=== PATIENT | female | born 1935 | race Caucasian/White ===

== ENCOUNTER → 2017-08-31 | Outpatient (CLI) | payer MEDICARE ==
[~2017-08-31] MED LIST: ACCOLATE20 MG PO; ADVAIR 250/501 EA INH; ADVAIR 500/501 E1 INH; ADVAIR DISKUS 51 DSK INH; CIPRO500 MG PO; CLARITIN-D 10 M1 T24 PO; CLARITIN-D 24 H1 T24 PO; CLARITIN10 MG PO; DELTASONE10 MG PO; FERROUS SULFAT325 MG PO; GLIPIZIDE XL5 MG PO; GLIPIZIDE5 MG PO; GLUCOTROL5 M1 PO; GLUCOTROL5 MG PO; HYDROCODONE BIT1 T11 PO; IRON65 MG PO; LOMOTIL 0.025 M1 TA1 PO; MECLIZINE12.5 MG PO; METFORMIN500 MG PO; PHENOBARBITAL PO; PHENOBARBITAL30 MG PO; PHENOBARBITAL32.4 M1 PO; PREDNISONE10 MG PO; PROTONIX20 MG PO; TYLENOL325 M1 PO; TYLENOL325 M2 PO; ZOFRAN ODT4 MG SL
== END | disposition home or self-care (01) ==
LOC: LAB 16:13
DX: R05 Cough (principal)

== ENCOUNTER 2018-05-07 12:51 | Emergency (ER) | payer MEDICARE ==
[~2018-05-07] VITALS: Wt 72.6 kg
[~2018-05-07 12:51] MED LIST changes: -PREDNISONE10 MG PO
[2018-05-07] MEDS ORDERED: PRILOSEC10 M2 PO (13:00)
[2018-05-07] MEDS ORDERED: PREDNISONE10 MG PO (13:00)
[2018-05-07 13:13] LABS: BILIRUBIN NEGATIVE (NEGATIVE); BLOOD NEGATIVE (NEGATIVE); CLARITY SL CLOUDY (CLEAR); COLOR YELLOW (YELLOW); GLUCOSE NEGATIVE (NEGATIVE); KETONE NEGATIVE (NEGATIVE); LEUKO ESTERASE 2+ (NEGATIVE); NITRITE NEGATIVE (NEGATIVE); UROBILINOGEN 0.2 E.U./dl (0.2-1.0)
[2018-05-07 13:25] LABS: BACTERIA 1+
[2018-05-07] MEDS ORDERED: NOVOLOG FL100 UNIT/1 SQ (13:28)
[2018-05-07] MEDS ORDERED: LANTUS SOL100 UNIT/1 SC (13:28)
[2018-05-07 13:35] LABS: BASO % 0.3 % (0.0-1.0); EOS % 0.3 % (1.0-4.0); HEMOGLOBIN 14.1 g/dl (12.0-16.0); LYMPH # 0.8 10*3/uL (1.3-4.4); LYMPH % 8.7 % (27.0-41.0); MEAN CELL VOLUME 86.8 fl (81.0-99.0); MEAN CORPUSCULAR HGB 27.8 pg (27.0-31.0); MEAN PLATELET VOLUME 9.8 fl (9.6-12.3); MONO # 0.2 10*3/uL (0.1-1.0); MONO % 1.6 % (3.0-9.0); NEUT # 8.3 10*3/uL (2.3-7.9); NEUT % 88.8 % (47.0-73.0); PLATELET COUNT AUTOMATED 206 10*3/uL (130-400); RED BLOOD COUNT 5.07 10*6/uL (4.10-5.10); RED CELL DISTRI WIDTH 12.8 % (0-14.5); WHITE BLOOD COUNT 9.3 10*3/uL (4.8-10.8)
[2018-05-07 13:42] LABS: INTERNATIONAL NORM RATIO 0.9 (2.0-3.5)
[2018-05-07 13:53] LABS: ALBUMIN 3.5 gm/dl (3.1-4.5); ALKALINE PHOSPHATASE 73 U/L (45-117); BUN 18 mg/dl (7-24); CHLORIDE 103 mmol/L (98-107); CREATININE 0.81 mg/dL (0.55-1.02); POTASSIUM 4.2 mmol/L (3.5-5.1); SGOT/AST 9 IU/L (3-35); SGPT/ALT 9 U/L (12-78); SODIUM 139 mmol/L (136-145); TOTAL PROTEIN 7.2 gm/dL (6.4-8.2)
[2018-05-07 13:54] LABS: TROPONIN I < 0.015 ng/ml (<0.045)
[2018-05-07] MEDS ORDERED: SEPTDS PO (14:50)
[2018-05-07 15:14] VITALS: BP 132/84
== END 2018-05-07 15:08 | disposition home or self-care (01) ==
LOC: ED 12:51
PROVIDERS: Nurse Practitioner Family
DX: J45.901 Unspecified asthma with (acute) exacerbation (principal); N39.0 Urinary tract infection, site not specified; Z79.4 Long term (current) use of insulin; Z88.6 Allergy status to analgesic agent; Z88.5 Allergy status to narcotic agent; Z88.8 Allergy status to other drugs, medicaments and biological substances

== ENCOUNTER 2019-08-21 00:16 | Inpatient (IN) | payer MEDICARE ==
[~2019-08-21] VITALS: Wt 77.6 kg
[~2019-08-21 00:16] MED LIST changes: +ADV 500/50 INH; +LANTUS SOL100 UNIT/1 SC; +NOVOLOG FL100 UNIT/2 SQ; +PANTOPRAZOLE SO40 MG PO; +PREDNISONE10 MG PO; +PRILOSEC10 M2 PO; +SEPTDS PO; +VENTOLIN 02.5 MG/3 M INH
[2019-08-21] MEDS ORDERED: KEFLEX500 M1 PO (00:45)
--- NOTE | 2019-08-21 01:05 | NUR ---
MCKENNA WATSON a 84 year old F admitted via stretcher from the EMERGENCY ROOM as a emergency 72 hr. hold admission. Arrived on unit at 0100. ALLERGIES: ASA,CODEINE,IODINE,DEMEROL,MORPHINE,PANTOPRAZOLE FROM PROTONIX,PROCAINE, PHENERGAN. Vital signs are: 97.2-85-17 151/69. NO ADMISSION FORMS SIGNED. PT WAS BROUGHT TO THE ER BY PRIVATE CAR BY HER SON AFTER HE RECEIVED A CALL FROM HIS AUNT SAYING THAT "SHE DIDNT SOUND RIGHT" PT LIVES WITH HER DAUGHTER. SHE HAS BEEN OUT OF CONTROL, SCREAMING, HOLLERING, SHOUTING , FLAILING HER ARMS & URINATED ON THE FLOOR PER ER REPORT. PT RECEIVED TOTAL MEDICATIONS OF ATIVAN 2MG IV, GEODON 10 MG IM, BENADRYL 25 MG IM, & 2 SEPERATE SHOTS OF THORAZINE 50 MG IM. ALSO RECIEVED ROCEPHEN IV FOR A UTI. PT CAME ON THE UNIT VIA STRETCHER SEDATED. UNABLE TO ANSWER ANY ASSESSMENT QUESTIONS OR ADMISSION PAPERS. WAS PLACED ON 02 @ 3L/MIN SHE WAS ON IT IN THE ER. PER FAMILY SHE HAS SLEEP APNEA & HAS OXYGEN AT HOME AT NIGHT. Admitted under the services of Dr. DELANEY GAONA,[facility]. A search was conducted and hazardous articles were removed. PER ER, DAUGHTER TOOK HOME PATIENTS PERSONAL BELONGINGS. NO WOUNDS FOUND ON ADMISSION. FELECIA TREVINO
[2019-08-21 01:14] VITALS: BP 151/69
--- NOTE | 2019-08-21 01:18 | NUR ---
NOTIFIED DR PIERSON OF MEDICAL CONSULT.
--- NOTE | 2019-08-21 02:00 | NUR ---
DR PIERSON ON UNIT TO SEE PT FOR MEDICAL CONSULT.
[2019-08-21 02:02] VITALS: BP 151/69
[2019-08-21 08:38] VITALS: BP 142/72
--- NOTE | 2019-08-21 18:07 | NUR ---
PATIENT ALERT TO PERSON WITH CONFUSION. MEMORY GAPS NOTED. MOOD IS HOPELESS/HELPLESS. CURRENTLY BEING TREATED FOR UTI. PATIENT SLEPT MOST OF THE DAY. MEDICATIONS HELD DUE TO BEING DROWSY. Q 15 MINUTE SAFETY CHECKS MAINTAINED. 2 PERSON ASSIST WITH ACTIVITIES OF DAILY LIVING, INCONTINENT OF BLADDER. SET UP FOR MEALS, POOR PO INTAKE NOTED. PATIENT MORE ALERT DURING DINNER. 1 CUP OF PUDDING AND 120CC OF DRINK CONSUMED. 1 PERSON ASSIST WITH MEALS. NO RESPONSE TO INTERNAL STIMULI OBSERVED. NO ATTEMPTS TO STAND OR WALK TO EXIT SEEK. CONTINUE TO MONITOR FOR INCREASED ANXIETY, YELLING/SCREAMING. PROVIDE ONE ON ONE AND REDIRECTION NEEDED.
[2019-08-21 20:00] VITALS: BP 129/89
--- NOTE | 2019-08-21 22:01 | NUR ---
24 HR chart check completed.
--- NOTE | 2019-08-22 00:26 | NUR ---
PT HAS REMAINED IN BED SLEEPING. AWAKENS WITH VERBAL PROMPTING. ALERT TO NAME & DATE OF . SPEECH IS CLEAR & COHERENT. PT CONFUSED & ASKED "WHAT HAPPENED". PT RECEPTIVE TO EXPLANATION BUT COMPREHENSION IS POOR. PT ASKED SAME QUESTION A FEW TIMES. CO-OPERATIVE DRINKING 240 CC OF DIET BRENDON ILIANA & EATING SNACK & TAKING HS MEDS CRUSHED WITH STAFF ASSISTANCE. PT STATED "IM JUST TIRED. I WANT TO SLEEP".
--- NOTE | 2019-08-22 05:43 | NUR ---
PT HAS SLEPT QUIETLY THROUGHOUT THE SHIFT PAST 2014. UTILIZED O2 VIA NC @ 3L
--- NOTE | 2019-08-22 06:29 | NUR ---
AM BEDSIDE GLUCOSE 118
[2019-08-22 07:47] VITALS: BP 128/67
--- NOTE | 2019-08-22 08:30 | NUR ---
Treatment Plan meeting with Dr. Howard, RN, AT, SW and Hardboard Coating Machine Operator. Plan for discharge next week. Pt. is from Home. Will reach out to family today to discuss discharge Plans.
--- NOTE | 2019-08-22 09:34 | NUR ---
PHYSICAL THERAPY Nursing screen received and chart reviewed. Physical therapy referral received. Thank you. Shasha Recinos,PT,DPT
--- NOTE | 2019-08-22 11:10 | NUR ---
PHYSICAL THERAPY Physical therapy evaluation completed. Full details and evaluation to follow. Moderate complexity skilled PT evaluation performed (80431). PT will work on strength, balance, transfers, and gait per POC. Recommend SNF upon discharge. Thank you, Rima Pritchett, SPT Shasha Recinos,PT,DPT
--- NOTE | 2019-08-22 11:58 | NUR ---
AM GROUP PT WAS BROUGHT INTO GROUP LATE BY MILIEU AND IMMEDIATELY ASKED TO GO BACK TO BED. PT WAS TOLD BY NURSING TO TRY TO STAY UP. PT SAT AT THE TABLE WITH PEERS BUT CHOSE NOT TO PARTICIPATE AND SOON FELL ASLEEP SITTING UPRIGHT IN THE WHEELCHAIR.
[2019-08-22 12:41] LABS: VITAMIN D, 25-HYDROXY 28.5 ng/mL (30-100)
--- NOTE | 2019-08-22 15:51 | NUR ---
PM GROUP PT DID NOT ATTEND AFTERNOON GROUP THERAPY. PT WAS IN BED RESTING.
[2019-08-22 19:36] VITALS: BP 118/64
--- NOTE | 2019-08-22 21:41 | NUR ---
NO ADVERSE BEHAVIORS NOTED. PT CALM, ALERT AND ORIENTED TO PERSON WITH CONFUSION. PT INTERACTIVE WITH STAFF AND PEERS, SAT IN DINING ROOM FOR HS SNACK. MEDICATION COMPLIANT WITHOUT DIFFICULTY, UNABLE TO EDUCATE DUE TO COGNITION. PT DENIES SI/HI AND HALLUCINATIONS, NO NOTED RESPONDING TO INTERNAL STIMULI. NO PARANOIA/DELUSIONS NOTED. NO PHYSICAL COMPLAINTS VOICED. PATIENT CURRENTLY LAYING DOWN WITH EYES CLOSED, RESPIRATIONS EASY AND REGULAR, NO SIGNS OR SYMPTOMS OF DISTRESS NOTED. PLAN IS TO CONTINUE TO MONITOR MOOD AND BEHAVIORS. PROVIDE REORIENTATION AND REDIRECTION NEEDED. PROVIDE 1:1 FOR VENTILATION OF FEELINGS. ENCOURAGE MEDICATION COMPLIANCE. MAINTAIN Q 15 MIN CHECKS.
--- NOTE | 2019-08-23 04:19 | NUR ---
24 HOUR CHART CHECK COMPLETED.
--- NOTE | 2019-08-23 06:48 | NUR ---
PATIENT REFUSED AM INSULIN COVERAGE OF 3 UNITS, PT STATED "I DONT NEED THAT, MY SUGAR COMES DOWN ON ITS OWN, I DONT TAKE INSULIN". PT UNABLE TO BE REDIRECTED AND UNRECEPTIVE TO EDUCATION AT THIS TIME.
--- NOTE | 2019-08-23 06:54 | NUR ---
PATIENT OBSERVED ON Q 15 MIN CHECKS TO HAVE SLEPT APPROX 8 HOURS WITH NO AWAKENINGS OR SIGNS AND SYMPTOMS OF DISTRESS NOTED.
--- NOTE | 2019-08-23 07:20 | NUR ---
OT NOTE Pt was seen this A.M. 1:1 for 24 minute OT session with MEDICAL DETAILIST and nursing staff present for observation only. Upon arrival pt was supine in bed. Pt identified by name and and had no complaints at this time. Pt presented to therapy on room air. Pt transferred supine to sit EOB with modA X 2. Once sitting EOB pt was able to maintain P-/P+ sitting balance requiring mod-maxA to correct retrograde posture and L lateral lean. While sitting EOB pt doffed gown with Lo and donned new shirt with Lo. Pants and underpants donned with modA. Sit to stand completed from bed level with maxA SENIOR SHIPPING CLERK for inital stand and then completed stand pivot from EOB to the w/c with Lo. Extra time given throughout due to pt's slow rate of performance and verbal prompts for encouragement and participation. Pt was left sitting upright in the dining room in her w/c under U staff supervision. Continue with rec D/C plan to SNF. HARDY Severino/Lukasz
[2019-08-23 07:44] VITALS: BP 98/48
--- NOTE | 2019-08-23 08:14 | NUR ---
PHYSICAL THERAPY PT SUPINE IN BED UPON ARRIVAL THIS A.M. PT IDENTIFIED BY NAME AND . PT AGREED TO ALL PHYSICAL THERAPY TREATMENT THIS VISIT. PT REPORTED THAT PT HAD NAME IN RIGHT SHOULD. PT PERFORMED BED MOBILITY SUPINE IT SITTING EOB WITH MODa X2 WITH VC'S TO HELP WITH PUSHING ON BED. PT THEN REQUIRED MOD-MAXa X1 FOR SEATED BALANCE PT WAS PUTTING ALL WEIGHT TO L SIDE AND UNABLE TO HOLD PT SELF UPRIGHT. PT PERFORMED STS FROM EOB WITH MAXa X1 WITH VC'S TO PUT WEIGHT THROUGH FEET AND TO STAND UP STRAIGHT. PT THEN WANTED TO LAY BACK DOWN AND WAS UNSAFE WITH A PLOP DOWN INTO BED TO SIDE LYING. PT THEN REQUIRED MAXa X1 TO GO FROM SUPINE TO SIT EOB. PT SAT EOB WITH Carol X1 FOR SEATED BALANCE AND WAS ABLE TO HOLD SELF BETTER THAN FIRST ATTEMP. PT PERFORMED STS FROM EOB WITH Carol X1 AND PIVOT TRANSFER TO WITH Carol X1 WITH VX'S FOR SAFETY. PT THEM WHEELED TO ACTIVITY ROOM. PT IN ACTIVITY ROOM WITH AIDE PRESENT AWAITING BREAFAST AT END OF SESSION. PT SEEN 1:1 FOR 16MINS THIS A.M. KASSANDRA KANG PTA
--- NOTE | 2019-08-23 08:49 | NUR ---
FIONA CHEEK DAIRY EQUIPMENT INSTALLER NOTIFIED OF MANUAL BP 98/48. NO COMPLAINTS OF BEING DIZZY. ENCOURAGED FLUIDS.
--- NOTE | 2019-08-23 11:57 | NUR ---
AM GROUP PT CHOSE NOT TO ATTEND MORNING GROUP THERAPY. PT STAYED IN BED.
--- NOTE | 2019-08-23 12:30 | NUR ---
Spoke with Pt. Granddaughter Sara Bautista during visiting Hours. Sara Feels that patient is at baseline and Patient is requesting discharge tommorow. Pt. states she will not voluntarily Sign in. Granddaughter and Patient live together in the same home and Granddaughter is the caregiver. Declined need for Homehealth and Granddaughter states that she will make patient appointments and patient is refusing Mental Health Follow up at discharge. Advised Nursing Staff that patient will discharge tommorow and hotel or motel room service supervisor time is 12:30. p.m.
--- NOTE | 2019-08-23 18:55 | NUR ---
PATIENT IS ALERT TO PEROSN, PLACE AND SITUATION; ABLE TO VOICE NEEDS. MOOD IS STABLE. DENIES ANY HALLUCINATIONS, DELUSIONS, HI/SI OR PAIN. NO RESPONSE TO INTERNAL STIMULI. REFUSED EVENING MEDICATION WITH EDUCATION PROVIDED REGARDING ANTIBOTICS FOR UTI. PATIENT STILL CONTINUES TO REFUSE. Q 15 MINUTE SAFETY CHECKS MAINTAINED. 1 PERSON ASSIST WITH ACTIVITIES OF DAILY LIVING, CONTINENT OF BOWEL AND BLADDER. SET UP FOR MEALS, INTAKES ARE IMPROVING. MONITOR FOR INCREASED CONFUSION, YELLING OUTBURST, CRYING EPISODES. PROVIDE ONE ON ONE AND REDIRECTION NEEDED.
[2019-08-23 20:00] VITALS: BP 141/71
--- NOTE | 2019-08-23 20:46 | NUR ---
EVENING/DISCUSSION/RELAXTION PT CHOSE NOT TO ATTEND BUT TO SLEEP AT THIS TIME. PT WILL CONTINUE TO BE ENCOURAGED TO ATTEND AND PARTICIPATE IN FUTURE GROUP SESSIONS.
--- NOTE | 2019-08-23 23:30 | NUR ---
24 HR chart check completed.
--- NOTE | 2019-08-24 00:02 | NUR ---
PT REQUESTED & MEDICATED WITH TYLENOL 2 TABS @ 2130 FOR C/O H/A. RATED PAIN 9/10. EFFECTIVE. PT SLEEPING QUIETLY AT THIS TIME.
--- NOTE | 2019-08-24 05:14 | NUR ---
PT HAS SLEPT QUIETLY PAST 2114 WITH A FEW BRIEF AWAKENINGS BUT REMAINED IN BED.
--- NOTE | 2019-08-24 06:16 | NUR ---
AM BEDSIDE GLUCOSE 175
[2019-08-24 09:00] VITALS: BP 106/58
[2019-08-24] MEDS ORDERED: NAMENDA-5 PO (10:02)
[2019-08-24] MEDS ORDERED: RIVASTIGMINE TAR3 M1 PO (10:02)
--- NOTE | 2019-08-24 12:16 | NUR ---
Spoke with Patient and her Granddaughter Sara Bautista Yesterday at visiting. Both Declined for marine driller to set up follow up appointments. Pt. follows in [place] and Family as well as patient has requested no Psychiatric Follow Up.
--- NOTE | 2019-08-25 07:32 | NUR ---
PHYSICAL THERAPY CO-SIGN I approve of the Physical Therapy notes written above. GEMMA PRITCHARD PT,DPT
--- NOTE | 2019-08-26 07:37 | NUR ---
OT CO-SIGN I APPROVE OF THE NOTES WRITTEN ABOVE. THANK YOU. CRESCENCIO KAPADIA, OTR/L
== END 2019-08-24 12:41 | disposition home or self-care (01) | DRG 885 ==
LOC: 3N 00:16
PROVIDERS: ADMIT Psychiatry & Neurology Psychiatry
DX: F23 Brief psychotic disorder (principal); N39.0 Urinary tract infection, site not specified; E87.1 Hypo-osmolality and hyponatremia; D75.89 Other specified diseases of blood and blood-forming organs; M19.90 Unspecified osteoarthritis, unspecified site; K21.9 Gastro-esophageal reflux disease without esophagitis; G30.9 Alzheimer's disease, unspecified; E11.65 Type 2 diabetes mellitus with hyperglycemia; M81.0 Age-related osteoporosis without current pathological fracture; F02.80 Dementia in other diseases classified elsewhere, unspecified severity, without behavioral disturbance, psychotic disturbance, mood disturbance, and anxiety; J45.909 Unspecified asthma, uncomplicated; J44.9 Chronic obstructive pulmonary disease, unspecified; Z79.4 Long term (current) use of insulin; Z82.49 Family history of ischemic heart disease and other diseases of the circulatory system; Z83.3 Family history of diabetes mellitus; Z80.8 Family history of malignant neoplasm of other organs or systems; Z88.6 Allergy status to analgesic agent; Z88.5 Allergy status to narcotic agent; Z88.4 Allergy status to anesthetic agent; Z91.09 Other allergy status, other than to drugs and biological substances; Z79.899 Other long term (current) drug therapy; Z86.73 Personal history of transient ischemic attack (TIA), and cerebral infarction without residual deficits; Z87.440 Personal history of urinary (tract) infections; Z98.51 Tubal ligation status

== ENCOUNTER → 2019-12-19 | Outpatient (CLI) | payer MEDICARE ==
[~2019-12-19] MED LIST changes: +KEFLEX500 M1 PO; +NAMENDA-5 PO; +RIVASTIGMINE TAR3 M1 PO
[2019-12-19 09:03] LABS: BASO % 0.3 % (0.0-1.0); EOS # 0.1 10*3/uL (0.0-0.4); EOS % 0.7 % (1.0-4.0); HEMATOCRIT 36.8 % (37.0-47.0); HEMOGLOBIN 10.5 g/dl (12.0-16.0); LYMPH # 2.5 10*3/uL (1.3-4.4); LYMPH % 23.7 % (27.0-41.0); MEAN CELL VOLUME 78.6 fl (81.0-99.0); MEAN CORPUSCULAR HGB 22.4 pg (27.0-31.0); MEAN CORPUSCULAR HGB CONC 28.5 g/dl (33.0-37.0); MEAN PLATELET VOLUME 10.4 fl (9.6-12.3); MONO # 0.6 10*3/uL (0.1-1.0); MONO % 5.9 % (3.0-9.0); NEUT # 7.2 10*3/uL (2.3-7.9); PLATELET COUNT AUTOMATED 312 10*3/uL (130-400); RED BLOOD COUNT 4.68 10*6/uL (4.10-5.10); WHITE BLOOD COUNT 10.5 10*3/uL (4.8-10.8)
[2019-12-19 09:24] LABS: ALBUMIN 3.2 gm/dl (3.1-4.5); ALKALINE PHOSPHATASE 70 U/L (45-117); BUN 21 mg/dl (7-24); CHLORIDE 101 mmol/L (98-107); CREATININE 0.85 mg/dL (0.55-1.02); FREE T4 1.15 ng/dl (0.76-1.46); POTASSIUM 4.5 mmol/L (3.5-5.1); SGOT/AST 6 IU/L (3-35); SGPT/ALT 13 U/L (12-78); SODIUM 136 mmol/L (136-145); TOTAL PROTEIN 6.8 gm/dL (6.4-8.2)
[2019-12-20 09:03] LABS: LDL CHOLESTEROL (DIRECT) 142 mg/dL (0-99)
== END | disposition home or self-care (01) ==
LOC: LAB 08:03
DX: E11.65 Type 2 diabetes mellitus with hyperglycemia (principal); Z79.899 Other long term (current) drug therapy

== ENCOUNTER 2020-06-02 22:06 | Inpatient (IN) | payer OTHER ==
[~2020-06-02] VITALS: Ht 157.4 cm; Wt 75.8 kg
[2020-06-02 22:46] LABS: BASO % 0.3 % (0.0-1.0); EOS # 0.1 10*3/uL (0.0-0.4); EOS % 0.7 % (1.0-4.0); HEMATOCRIT 42.5 % (37.0-47.0); LYMPH # 2.6 10*3/uL (1.3-4.4); LYMPH % 29.6 % (27.0-41.0); MEAN CELL VOLUME 83.5 fl (81.0-99.0); MEAN CORPUSCULAR HGB 23.8 pg (27.0-31.0); MEAN CORPUSCULAR HGB CONC 28.5 g/dl (33.0-37.0); MEAN PLATELET VOLUME 9.4 fl (9.6-12.3); MONO # 0.8 10*3/uL (0.1-1.0); MONO % 9.2 % (3.0-9.0); NEUT # 5.3 10*3/uL (2.3-7.9); NEUT % 59.7 % (47.0-73.0); PLATELET COUNT AUTOMATED 225 10*3/uL (130-400); RED BLOOD COUNT 5.09 10*6/uL (4.10-5.10); RED CELL DISTRI WIDTH 16.1 % (0-14.5); WHITE BLOOD COUNT 8.8 10*3/uL (4.8-10.8)
[2020-06-02 22:47] VITALS: BP 104/39
[2020-06-02 22:58] LABS: ACT PARTIAL THROMBO TIME 22.7 SECONDS (20.0-32.1); INTERNATIONAL NORM RATIO 0.9 (2.0-3.5)
[2020-06-02 23:03] LABS: ALKALINE PHOSPHATASE 65 U/L (45-117); BUN 19 mg/dl (7-24); CHLORIDE 108 mmol/L (98-107); CREATININE 0.75 mg/dL (0.55-1.02); POTASSIUM 3.9 mmol/L (3.5-5.1); SGOT/AST 11 IU/L (3-35); SGPT/ALT 14 U/L (12-78); SODIUM 141 mmol/L (136-145); TOTAL PROTEIN 6.4 gm/dL (6.4-8.2)
[2020-06-02 23:06] LABS: TROPONIN I < 0.015 ng/ml (<0.045)
[2020-06-03 00:30] VITALS: BP 154/58
[2020-06-03] MEDS ORDERED: PAXIL10 MG PO (01:05)
[2020-06-03] MEDS ORDERED: CLARITIN-D 121 EACH PO (01:08)
[2020-06-03 04:25] LABS: BASO % 0.1 % (0.0-1.0); EOS # 0.1 10*3/uL (0.0-0.4); EOS % 0.6 % (1.0-4.0); HEMATOCRIT 40.5 % (37.0-47.0); LYMPH # 1.7 10*3/uL (1.3-4.4); LYMPH % 20.1 % (27.0-41.0); MEAN CELL VOLUME 83.3 fl (81.0-99.0); MEAN CORPUSCULAR HGB 23.7 pg (27.0-31.0); MEAN CORPUSCULAR HGB CONC 28.4 g/dl (33.0-37.0); MEAN PLATELET VOLUME 9.2 fl (9.6-12.3); MONO # 0.8 10*3/uL (0.1-1.0); NEUT # 5.7 10*3/uL (2.3-7.9); NEUT % 68.6 % (47.0-73.0); PLATELET COUNT AUTOMATED 175 10*3/uL (130-400); RED BLOOD COUNT 4.86 10*6/uL (4.10-5.10); RED CELL DISTRI WIDTH 16.4 % (0-14.5); WHITE BLOOD COUNT 8.2 10*3/uL (4.8-10.8)
[2020-06-03 04:41] LABS: ALBUMIN 2.7 gm/dl (3.1-4.5); ALKALINE PHOSPHATASE 59 U/L (45-117); BUN 16 mg/dl (7-24); CHLORIDE 107 mmol/L (98-107); CHOLESTEROL 223 mg/dL (<200); CREATININE 0.74 mg/dL (0.55-1.02); HDL CHOLESTEROL 75 mg/dl (40-60); LDL CHOLESTEROL 127 mg/dL (9-159); POTASSIUM 4.4 mmol/L (3.5-5.1); SGOT/AST 4 IU/L (3-35); SGPT/ALT 17 U/L (12-78); SODIUM 141 mmol/L (136-145); TOTAL PROTEIN 5.9 gm/dL (6.4-8.2); TRIGLYCERIDES 103 mg/dl (<150); VLDL CHOLESTEROL 21 mg/dL (6-40)
[2020-06-03 04:42] LABS: FREE T4 1.18 ng/dl (0.76-1.46)
[2020-06-03 08:00] VITALS: BP 156/57
[2020-06-03 09:44] LABS: VITAMIN D, 25-HYDROXY 22.9 ng/mL (30-100)
[2020-06-03] MEDS ORDERED: PRAVASTATIN SOD10 MG PO (11:10)
[2020-06-03] MEDS ORDERED: VALIUM5 MG PO (11:10)
[2020-06-03 12:00] VITALS: BP 123/61
[2020-06-03 16:00] VITALS: BP 118/65; BP 152/52
[2020-06-03 20:00] VITALS: BP 134/46
[2020-06-04] VITALS: BP 149/58
[2020-06-04 06:11] LABS: BASO % 0.3 % (0.0-1.0); EOS % 0.5 % (1.0-4.0); HEMATOCRIT 39.2 % (37.0-47.0); LYMPH # 1.5 10*3/uL (1.3-4.4); MEAN CORPUSCULAR HGB 23.4 pg (27.0-31.0); MEAN CORPUSCULAR HGB CONC 28.6 g/dl (33.0-37.0); MEAN PLATELET VOLUME 9.8 fl (9.6-12.3); MONO # 0.7 10*3/uL (0.1-1.0); MONO % 9.8 % (3.0-9.0); PLATELET COUNT AUTOMATED 176 10*3/uL (130-400); RED BLOOD COUNT 4.78 10*6/uL (4.10-5.10); RED CELL DISTRI WIDTH 15.9 % (0-14.5); WHITE BLOOD COUNT 7.3 10*3/uL (4.8-10.8)
[2020-06-04 08:00] VITALS: BP 130/42
[2020-06-04 12:26] LABS: BILIRUBIN NEGATIVE (NEGATIVE); CLARITY CLEAR (CLEAR); COLOR YELLOW (YELLOW); GLUCOSE NEGATIVE (NEGATIVE); KETONE NEGATIVE (NEGATIVE)
[2020-06-04 12:27] LABS: BLOOD NEGATIVE (NEGATIVE); LEUKO ESTERASE 1+ (NEGATIVE); NITRITE NEGATIVE (NEGATIVE); RBC 0-2 rbc/hpf (0-2); SPECIFIC GRAVITY 1.015 (1.005-1.030); UROBILINOGEN < 0.2 E.U./dl (0.2-1.0)
[2020-06-04 12:28] LABS: BACTERIA TRACE
== END 2020-06-04 14:51 | disposition home health service (06) | DRG 70 ==
LOC: ED 22:06 → 4E 06-03 00:06 → EDHOLD 06-03 00:06 → 4E 06-03 00:51
PROVIDERS: Emergency Medicine; Internal Medicine; ADMIT Family Medicine
DX: G93.41 Metabolic encephalopathy (principal); E43 Unspecified severe protein-calorie malnutrition; F23 Brief psychotic disorder; K21.9 Gastro-esophageal reflux disease without esophagitis; J44.9 Chronic obstructive pulmonary disease, unspecified; F03.90 Unspecified dementia, unspecified severity, without behavioral disturbance, psychotic disturbance, mood disturbance, and anxiety; E87.8 Other disorders of electrolyte and fluid balance, not elsewhere classified; E11.65 Type 2 diabetes mellitus with hyperglycemia; M19.90 Unspecified osteoarthritis, unspecified site; M81.0 Age-related osteoporosis without current pathological fracture; E55.9 Vitamin D deficiency, unspecified; F39 Unspecified mood [affective] disorder; G47.30 Sleep apnea, unspecified; D64.9 Anemia, unspecified; Z91.041 Radiographic dye allergy status; Z88.6 Allergy status to analgesic agent; Z88.5 Allergy status to narcotic agent; Z88.8 Allergy status to other drugs, medicaments and biological substances; Z88.4 Allergy status to anesthetic agent; Z98.51 Tubal ligation status; Z83.3 Family history of diabetes mellitus; Z82.49 Family history of ischemic heart disease and other diseases of the circulatory system; Z80.8 Family history of malignant neoplasm of other organs or systems; Z86.73 Personal history of transient ischemic attack (TIA), and cerebral infarction without residual deficits; Z87.440 Personal history of urinary (tract) infections; Z79.899 Other long term (current) drug therapy; Z68.30 Body mass index [BMI] 30.0-30.9, adult

== ENCOUNTER 2020-09-24 22:18 | Inpatient (IN) | payer MEDICARE ==
[~2020-09-24] VITALS: Ht 152.4 cm; Wt 77.1 kg
[~2020-09-24 22:18] MED LIST changes: +CLARITIN-D 121 EACH PO; +PAXIL10 MG PO; +PRAVASTATIN SOD10 MG PO; +VALIUM5 MG PO
--- NOTE | 2020-09-24 23:00 | NUR ---
PT. RESTING IN BED. RR EASY AND NONLABORED. CALL LIGHT WITHIN REACH. WILL CONT TO MONITOR.
[2020-09-24 23:05] LABS: BASO % 0.2 % (0.0-1.0); EOS # 0.1 10*3/uL (0.0-0.4); EOS % 0.7 % (1.0-4.0); LYMPH # 1.7 10*3/uL (1.3-4.4); LYMPH % 14.9 % (27.0-41.0); MEAN CORPUSCULAR HGB 25.8 pg (27.0-31.0); MEAN PLATELET VOLUME 10.5 fl (9.6-12.3); MONO # 0.6 10*3/uL (0.1-1.0); MONO % 5.1 % (3.0-9.0); NEUT # 9.1 10*3/uL (2.3-7.9); NEUT % 78.8 % (47.0-73.0); PLATELET COUNT AUTOMATED 237 10*3/uL (130-400); RED CELL DISTRI WIDTH 14.4 % (0-14.5); WHITE BLOOD COUNT 11.6 10*3/uL (4.8-10.8)
[2020-09-24 23:16] LABS: ACT PARTIAL THROMBO TIME 23.3 SECONDS (20.0-32.1)
[2020-09-24 23:17] VITALS: BP 157/101
[2020-09-24 23:22] LABS: ALBUMIN 3.4 gm/dl (3.1-4.5); ALKALINE PHOSPHATASE 57 U/L (45-117); BUN 8 mg/dl (7-24); CHLORIDE 98 mmol/L (98-107); CREATININE 0.87 mg/dL (0.55-1.02); POTASSIUM 3.8 mmol/L (3.5-5.1); SGOT/AST 5 IU/L (3-35); SGPT/ALT 9 U/L (12-78); SODIUM 138 mmol/L (136-145); TOTAL PROTEIN 7.3 gm/dL (6.4-8.2)
[2020-09-24 23:25] LABS: TROPONIN I < 0.015 ng/ml (<0.045)
[2020-09-24 23:27] LABS: BILIRUBIN Negative (Negative); BLOOD Negative (Negative); CLARITY Clear (Clear); COLOR Yellow (Yellow); GLUCOSE 2+ (Negative); KETONE Negative (Negative); LEUKO ESTERASE Negative (Negative); NITRITE Negative (Negative); PH 5.5 (4.5-8.0); SPECIFIC GRAVITY <= 1.005 (1.001-1.030)
[2020-09-24 23:41] LABS: WBC 0-2 wbc/hpf (0-5); YEAST TRACE
[2020-09-25] VITALS (10 sets, daily range): BP systolic 113–150; BP diastolic 40–73
--- NOTE | 2020-09-25 00:21 | NUR ---
PT. RESTING IN BED. RR EASY AND NONLABORED. CALL LIGHT WITHIN REACH. WILL CONT TO MONITOR. FAMILY AT BEDSIDE.
--- NOTE | 2020-09-25 01:00 | NUR ---
PT. RESTING IN BED. APPEARS IN NO DISTRESS. RR EASY AND NONLABORED. CALL LIGHT IN REACH. WILL CONT TO MONITOR.
--- NOTE | 2020-09-25 01:30 | NUR ---
PT. UP AND TO BEDSIDE COMMODE.
--- NOTE | 2020-09-25 02:54 | NUR ---
PT. RESTING IN BED. RR EASY AND NONLABORED. CALL LIGHT WITHIN REACH. WILL CONT TO MONITOR.
--- NOTE | 2020-09-25 05:35 | NUR ---
PT. UP AND TO BEDSIDE COMMODE.
--- NOTE | 2020-09-25 06:19 | NUR ---
PT. RESTING IN BED WATCHING TV. RR EASY AND NONLABORED. CALL LIGHT IN REACH. WILL CONT TO MONITOR.
--- NOTE | 2020-09-25 08:34 | NUR ---
USED BEDSIDE COMMODE, TOLERATED FAIR. BREAKFAST TRAY PROVIDED.
--- NOTE | 2020-09-25 11:35 | NUR ---
PT PULLED OUT IV, ATTEMPTED TO RESTART, PT VERY UPSET AT THIS TIME. WWILL GIVE BREAK FOR VISITING WITH SON AND RESTART.
--- NOTE | 2020-09-25 13:10 | NUR ---
DR MELVIN CONSULTED VIA TELEPHONE.
--- NOTE | 2020-09-25 13:18 | NUR ---
LUNCH TRAY PROVIDED.
--- NOTE | 2020-09-25 13:22 | NUR ---
[facility] CALLED, THEY ARE FAXING MED LIST
[2020-09-25] MEDS ORDERED: PREDNISONE10 MG PO (13:35)
[2020-09-25] MEDS ORDERED: RIVASTIGMINE TAR3 M1 PO (13:36)
[2020-09-25] MEDS ORDERED: DIAZEPAM2 MG PO (13:36)
[2020-09-25] MEDS ORDERED: ALPRAZOLAM0.25 M2 PO (13:40)
[2020-09-25] MEDS ORDERED: DIVALPROEX SOD250 MG PO (13:41)
--- NOTE | 2020-09-25 13:43 | NUR ---
MED REC COMPLETED FROM WHAT PHARMACY SENT PATIENT NOT ANSWERING ALL QUESTIONS. BUT DID SAY AT ONE POINT THAT SHE TAKES INSULIN.
--- NOTE | 2020-09-25 14:55 | NUR ---
PT WAS UP TO BEDSIDE COMMODE, ASSISTED BACK TO BED.
--- NOTE | 2020-09-25 17:09 | NUR ---
Time: 1704 A 85 year old FEMALE admitted to under services of LUIS TEMPLE DO. Pt. arrived via bed from ER. Chief complaint: HYPERGYLCEMIA, SIRS, PENUMONIA. TRISTON GAYTAN
[2020-09-25] MEDS ORDERED: PROAIR HFA8.5 GM INH (17:39)
[2020-09-25] MEDS ORDERED: COMBIVENT RESPIM4 GM INH (17:39)
[2020-09-25] MEDS ORDERED: Ipratropium Brom3 ML INH (17:40)
--- NOTE | 2020-09-25 17:57 | NUR ---
RESIDENT NOTIFIED OF PT BEGINING COMBATIVE AND PARANOID 0.5MG OF IV ATIVAN GIVEN PER ORDER, ORDER FOR 1:1 OBTAINED FOR PATIENTS SAFETY, NURSING SOLID STATE TESTER NOTIFIED
--- NOTE | 2020-09-25 18:24 | NUR ---
PT NON LONGER BEING COMBATIVE, STILL CONFUSED AND PARANOID, CURRENTLY AT NURSES STATION WITH NURSE EATING DINNER.
--- NOTE | 2020-09-25 19:20 | NUR ---
PATIENT SITTING AT NURSES STATION, PATIENT HAS ORDERED A 1:1 SITTER THAT IS NOT AVAILABLE AT THIS TIME. HARDWOOD SAWYER IS AWARE. PATIENT IS REFUSING TO PUT O2 NC ON, ATTEMPTED TO PLACE, PATIENT BECAME IRRATE AND SWATTED AT THIS NURSE AND YELLED I DONT NEED ANYTHING IN MY NOSE. EDUCATION PROVIDED, PATIEMT NOT RECEPTIVE AND COMBATIVE.
--- NOTE | 2020-09-25 19:25 | NUR ---
PATIEN TAKEN TO ROOM AND PLACED IN BED, PATIENT HAS A 1:1 SITTER AT THE TIME BEING.
--- NOTE | 2020-09-25 22:10 | NUR ---
ON FLOOR INFORMED THAT PATIENT FINGERSTICK BGM IS 406. INSULIN GIVEN PER SSI, STATES THAT WAS OK. PATIENT HAD REFUSED SECOND FINGERSTICK BGM. PATIENT WOUKLD START SCREAMING WHEN ATTEMPTING TO ADMINISTER IV MEDICATION, WAS ABLE TO GET SOLUMEDROL IN BUT PATIENT STARTED TO BEING COMBATIVE, IV SITE IS ASYMPTOMATIC, PATIENT SCREAMS WHEN I MOVE/TOUCH HER. PATIENT ASLO SCREAMED AT THE TOP OF HER LUNGS WHEN ADMINISTERING SQ INSULIN. INFORMED I AM UNABLE TO GIVE IV ATB AT THIS D/T PATIENTS BEHAVIOR/COMBATIVENESS. STATES TO PLACE IM ATIVAN 1MG NOW.
--- NOTE | 2020-09-25 22:15 | NUR ---
PATIENT GIVEN X1 DOSE OF IM ATIVAN IN RIGHT DELTOID. PATIENT SCREAMED DURING ADMINISTRATION. WILL CONTINUE TO MONITOR
--- NOTE | 2020-09-25 22:20 | NUR ---
PATIENT WAS ASSISTED TO BSC TO VOID. PATIENT IS AGITATED/RESTLESS, REPEATEDLY ATTEMPTING TO RIP HER GOWN OFF, PATIENT ACCUSED NURSE OF RIPPING HER HAIR OUT WHEN PATIENT WAS THE ONE DOING SO BY PULLING AT THER GOWN. ATTEMPS AT REORIENTATION AND DISTRACTIONS UNSUCCESSFUL. BIJU-CARE PROVIDED, PATIENT SCREAMED AT NURSE. PATIENT THEN WAS PLACED UP IN BED AND REPOSITIONED. PATIENT SEEMS TO BE CONTENT AT THIS TIME. WILL CONTINUE TO MONITOR
--- NOTE | 2020-09-25 23:15 | NUR ---
PATIENT IS STILL RESTLESS, BUT NOTABLY BETTER THAN EARLIER. WILL OCNTINUE TO MONITOR
--- NOTE | 2020-09-26 01:20 | NUR ---
PATIENT NOTED TO BE RESTIG COMFORTBALY AT THIS TIME. NO OVERT DISTRESS NOTED, APPEARS TO BE SLEEPING, SNORING. BED IS LOCKEDI N LOWEST POSITION, ALARM MAINTAINED, 1:1 SITTER PRESENT
[2020-09-26 06:38] LABS: HEMATOCRIT 43.9 % (37.0-47.0); LYMPH % 13.1 % (27.0-41.0); MEAN CELL VOLUME 87.1 fl (81.0-99.0); MEAN CORPUSCULAR HGB 26.6 pg (27.0-31.0); MEAN CORPUSCULAR HGB CONC 30.5 g/dl (33.0-37.0); MEAN PLATELET VOLUME 10.5 fl (9.6-12.3); MONO # 0.2 10*3/uL (0.1-1.0); MONO % 3.2 % (3.0-9.0); NEUT # 6.3 10*3/uL (2.3-7.9); NEUT % 83.3 % (47.0-73.0); PLATELET COUNT AUTOMATED 202 10*3/uL (130-400); RED BLOOD COUNT 5.04 10*6/uL (4.10-5.10); RED CELL DISTRI WIDTH 14.7 % (0-14.5); WHITE BLOOD COUNT 7.6 10*3/uL (4.8-10.8)
[2020-09-26 06:50] LABS: BUN 9 mg/dl (7-24); CHLORIDE 107 mmol/L (98-107); CREATININE 0.63 mg/dL (0.55-1.02); POTASSIUM 4.2 mmol/L (3.5-5.1); SODIUM 143 mmol/L (136-145)
[2020-09-26 08:00] VITALS: BP 123/51
--- NOTE | 2020-09-26 08:26 | NUR ---
PHYSICAL THERAPY Nursing screen received and chart reviewed. PT order received. Will follow to complete skilled PT evaluation. Thank you. Shasha Recinos,PT,DPT
--- NOTE | 2020-09-26 09:00 | NUR ---
PHYSICAL THERAPY PT eval received and chart reviewed. Pt asleep when PT arrived and per nurse Kristi do not see pt if she is asleep due to pt irritability and lack of sleep. Will continue to follow and attempt to see at a later time/date. Thank you. Kye Lynne SPT Shasha Recinos PT,DPT
--- NOTE | 2020-09-26 09:00 | NUR ---
CM in to see patient. Son and patient attendant at bedside. Will reach out to patient's daughter, Sara, who she lives with.
--- NOTE | 2020-09-26 11:54 | NUR ---
Occupational Therapy evaluation attempted. Per nursing patient not appropriate for OT as she was recently medicated for agitation and has not slept at all last night. OTR will attempt at a later time/date. Lexy Wang OTR/Lukasz
--- NOTE | 2020-09-26 11:55 | NUR ---
Attempted PT evaluation and per nursing pt is not appropriate at this time for PT as she was recently medicated for agitation and is currently resting well. Plan to attempt at later time. Riri Bender, PT
[2020-09-26 12:00] VITALS: BP 133/60
--- NOTE | 2020-09-26 12:03 | NUR ---
Spoke to daughter, Sara, regarding discharge planning. Patient lives at home with her. She would like to see how patient works with therapy prior to deciding on rehab vs home health care services. She states at home the patient is hardly moving around, sleeps a lot, doesn't want to be bothered, barely active, and needs assistance with her ADLs and ambulates with a walker but uses a wheelchair for the most part of the time. Sara is DPOAH. Await therapy recommendations.
[2020-09-26 12:20] LABS: ABG BASE EXCESS 7.7 mmol/L (-2.0-2.0); ARTERIAL BLOOD GAS PH 7.433 (7.35-7.45)
--- NOTE | 2020-09-26 13:11 | NUR ---
Patient and daughter requesting a referral to 1. [facility] and 2. [facility]. Contacted real and faxed initial referral; will fax PT eval and covid test results when available. Waiting on review/acceptance.
--- NOTE | 2020-09-26 13:27 | NUR ---
DR SALDANA AND Jp BAH CONSULTS CALLED TO [facility]
--- NOTE | 2020-09-26 14:13 | NUR ---
Occupational Therapy attempted but patient was lethargic and could not remain awake for eval. OT will attempt at a later date. Lexy Wang OTR/L
--- NOTE | 2020-09-26 14:15 | NUR ---
Attempted PT evaluation this afternoon with pt unable to stay awake for evaluation to be completed. social services aide was present in room with pt and states pt ate lunch and returned to sleep. Will attempt at later date. Riri Bender, PT
--- NOTE | 2020-09-26 14:43 | NUR ---
PATIENT ASSESSED FOR THE USE OF HOME OXYGEN. PATIENT IS UNABLE TO AMBULATE. BUT MDURING ASSESSMENT PATIENT HAD BEEN LEFT OFF OF HER OXYGEN. SO ON ROOM AIR LAYING IN BED, PATIENTS VITALS WERE HEART RATE:66, RESPIRATORY RATE:18, BLOOD PRESSURE:133/60, SPO2: 87%. AFTER PLACING 2L NASAL CANNULA ON THE PATIENT SEE WAS ABLE TO ACHEIVE AND MAINTAIN 95% ON THE 2 L NASAL CANNULA.
--- NOTE | 2020-09-26 15:25 | NUR ---
Nursing screen received and Occupational Therapy referral received. Thank you. Lexy Wang OTR/L
[2020-09-26 16:00] VITALS: BP 115/56
[2020-09-26 20:00] VITALS: BP 106/39; BP 110/52
--- NOTE | 2020-09-26 20:00 | NUR ---
IN TO ASSESS PATIENT, PATIENT LAYING IN BED, ATTEMPTING TO GET COMFORTABLE AND ROLL ONTO SIDE. PATIENT [place] AND UNSURE IF ABLE TO HEAR THIS NURSE. PATIENT OPENS EYES AND ROLLS OVER AND GOES BACK TO SLEEP. NO EDEMA NOTED TO BLE. FAINT EXPIRATORY WHEEZES NOTED T/O. PATIENT NORMOACTIVE BOWELS X4 QUADS. NO DISTRESS NOTED AT THIS TIME. CALL LIGHT WITHIN REACH, 1:1 SITTER AT BEDSIDE. WILL CONTINUE TO MONITOR
--- NOTE | 2020-09-26 22:06 | NUR ---
PATIENT TOOK NIGHT TIME MEDICATION AT THIS TIME WITHOUT ISSUE.
[2020-09-27] VITALS: BP 140/75
--- NOTE | 2020-09-27 07:30 | NUR ---
PT RESTING IN BED.RESPS EASY AND NONLABORED ON 2L NC.NO S/S OF DISTRESS NOTED. VSS. WHITE BOARD UPDATED. ALERT TO SELF. COMBATIVE @X. AGITATED W CARE. TUNICA-BILOXI. NO SOB NOTED. FAINT WHEEZES NOTED. WILL CONTINUE TO MONITOR. CALL LIGHT WITHIN REACH. 1:1 STATUS MAINTAINED. BED ALARM ON. FALL RISK PRECAUTIONS.
[2020-09-27 08:00] VITALS: BP 152/67
[2020-09-27 08:21] LABS: BASO % 0.2 % (0.0-1.0); EOS % 0.5 % (1.0-4.0); HEMATOCRIT 45.6 % (37.0-47.0); LYMPH # 2.1 10*3/uL (1.3-4.4); LYMPH % 24.8 % (27.0-41.0); MEAN CELL VOLUME 87.4 fl (81.0-99.0); MEAN CORPUSCULAR HGB 26.6 pg (27.0-31.0); MEAN CORPUSCULAR HGB CONC 30.5 g/dl (33.0-37.0); MEAN PLATELET VOLUME 10.3 fl (9.6-12.3); MONO # 0.4 10*3/uL (0.1-1.0); MONO % 5.1 % (3.0-9.0); NEUT # 5.8 10*3/uL (2.3-7.9); PLATELET COUNT AUTOMATED 166 10*3/uL (130-400); RED BLOOD COUNT 5.22 10*6/uL (4.10-5.10); RED CELL DISTRI WIDTH 14.7 % (0-14.5); WHITE BLOOD COUNT 8.4 10*3/uL (4.8-10.8)
--- NOTE | 2020-09-27 08:40 | NUR ---
PHYSICAL THERAPY Physical Therapy evaluation completed on 4th floor with full evaluation to follow. Recommend physical therapy per plan of care and SNF upon discharge. Thank you for this referral. Tonia Thurston PT
--- NOTE | 2020-09-27 08:45 | NUR ---
Occupational Therapy evaluation completed on 4 with full eval to follow. Precautions include fall risk; bed/chair alarm,lethargy, impaired cognition,SALAMATOF, 1:1 sitter, high complexity level [id number]. Recommend OT per POC and SNf to determine best ability to function. Thank you. Zachary Wang OTR/l
[2020-09-27 08:49] LABS: ALBUMIN 2.6 gm/dl (3.1-4.5); ALKALINE PHOSPHATASE 45 U/L (45-117); BUN 11 mg/dl (7-24); CHLORIDE 104 mmol/L (98-107); CREATININE 0.58 mg/dL (0.55-1.02); POTASSIUM 3.9 mmol/L (3.5-5.1); SGOT/AST 8 IU/L (3-35); SGPT/ALT 7 U/L (12-78); SODIUM 140 mmol/L (136-145); TOTAL PROTEIN 5.7 gm/dL (6.4-8.2)
--- NOTE | 2020-09-27 08:59 | NUR ---
SPEECH PATHOLOGY Nursing screen completed. There are no reports of acute difficulty communicating or swallowing however this dept. will be available for consult if needs arise. HUMPHREY FRANCO MSCCC-MANAGER CRISIS
--- NOTE | 2020-09-27 09:56 | NUR ---
Hep Lock discontinued. Site asymptomatic. Pressure applied. Sterile dressing applied. MAYCO CERDA IV started left UPPER ARM with #22 protective cath after 1 attempts. Site prepped with Chloroprep. Sterile dressing applied. Patient tolerated procedure well. MAYCO CERDA
[2020-09-27 12:00] VITALS: BP 122/89
--- NOTE | 2020-09-27 12:08 | NUR ---
AUTO SERVICE ADVISOR RECEIVED CALL FROM MARINO WATSON. SHE STATED THAT SHE FOUND DOCUMENTS FOR DPOA-HC AND THAT SHE IS THE DPOA-HC. SHE WILL BE EMAILING A COPY TO HAVE PLACED IN THE CHART. SHE ASKED ABOUT THE REFERRAL AUTO SERVICE ADVISOR EXPLAINED IT IS STILL IN THE PROCESS.
--- NOTE | 2020-09-27 12:59 | NUR ---
INTENSIVE CARE ANAESTHETIST RECEIVED DPOA-HC DOCUMENTS FROM PATIENTS DAUGHTER. WILL PLACE IN THE CHART. FIRST AGENT IS MARINO WATSON, SECOND AGENT IS PREMA CASSIDY.
--- NOTE | 2020-09-27 13:39 | NUR ---
CM in to see patient. She is sitting up in her bedside chair with a tray eating her lunch. She will not answer questions and not following commands. Will continue to follow for any discharge planning needs. urban and regional planner following SNF referrals.
--- NOTE | 2020-09-27 14:49 | NUR ---
[facility] has accepted this patient. She requires a negative covid test and a 3 night stay prior to discharge.
--- NOTE | 2020-09-27 14:55 | NUR ---
MESSAGE LEFT W DR HUYNH ANSWERING SERVICE REGARDING NEW CONSULT
[2020-09-27 16:00] VITALS: BP 134/87
--- NOTE | 2020-09-27 16:15 | NUR ---
PER DR MICHELLE PT DOES NOT NEED TO BE A 1:1. NO FURTHER EPISODES OF OUTBURTS/COMBATIVENESS
--- NOTE | 2020-09-27 17:04 | NUR ---
PT SET BED ALARM OFF. FOUND TO BE NAKED WITH GOWN AND OXYGEN OFF. PT REORIENTED. NEW GOWN AND OXYGEN REAPPLIED. REPOSITIONED FOR COMFORT. BREIF CHANGED, BIJU CARE PROVIDED. BED ALARM ON. CALL LIGHT WITIN REACH. FALL PRECAUTIONS MAINTAINED
[2020-09-27 20:00] VITALS: BP 157/81
--- NOTE | 2020-09-27 21:08 | NUR ---
PATIENT AT THIS TIME ONLY TOOK EXELON CAPSULE. STATED SHE DOESN'T TAKE THE OTHER PILLS. ATTEMPTEDT TO REORIENT PATIENT AND CALL HER DAUGHTER, DAUGHTER DID NOT ANSWER. PATIENT UPSET AND REFUSING BLOOD SUGAR CHECK AND REFUSING OTHER MEDICATIONS. CALL LIGHT CHIQUIS LANIER, WILL MONITOR
--- NOTE | 2020-09-27 22:00 | NUR ---
PATIENT FINALLY TOOK DEPAKOTE, BUT REFUSED MUCINEX AFTER PATIENTS DAUGHTER TALKED TO HER ON THE PHONE AND CALMED HER DOWN. CALL LIGHT WTHIN REACH, BED ALARM INTACT, WILL CONTINUE TO MONITOR
--- NOTE | 2020-09-27 22:30 | NUR ---
DISCUSSED THE PATIENT WITH THE DAUGHTER ON THE PHONE. SHE STATED THAT THE PATIENT HAS BEEN IN [place] AND GETS SO CONFUSED THAT SHE NEEDS TO HAVE "A SHOT" TO HELP CALM HER DOWN. SHE STATES SHE HAS BEEN GETTING WORSE AND WORSE RECENTLY AT HOME THINKING THAT HER DAUGHTER IS HER "NURSE" AND SOMETIMES DOESN'T EVEN RECOGNIZE HER HER DAUGHTER.
--- NOTE | 2020-09-27 23:19 | NUR ---
24 HR chart check completed.
[2020-09-28] VITALS: BP 178/89
--- NOTE | 2020-09-28 00:26 | NUR ---
NOTIFIED DR. MICHELLE OF PATIENT SITTING AT NURSES STATION WITH NURSES SHE CONTINUES TO BE VERY UPSET AND CRAWLING OUT OF THE BED. NOTIFIED HER THAT THE PATIENTS BLOOD PRESSURE IS 174/82 AND PATIENT IS VERY TENSE AND HAS BEEN OFF/ON CRYING TONIGHT.
--- NOTE | 2020-09-28 00:34 | NUR ---
NOTIFIED DR. MICHELLE THAT AFTER ADMINISTERING ZOFRAN WHEN PATIENT STATED SHE FELT SICK, WE LOST HER IV SITE. ASKED HER IF INSTEAD OF IV ATIVAN IF WE CAN ATTEMPT TO GIVE HER PO XANAX INSTEAD WHILE WE TRY FOR AN IV. SHE STATED THIS IS FINE.
--- NOTE | 2020-09-28 00:34 | NUR ---
PRN ZOFRAN GIVEN FOR PT COMPLAINTS "I FEEL SICK TO MY STOMACH". CALL LIGHT WITHIN REACH, WILL MONITOR
--- NOTE | 2020-09-28 01:16 | NUR ---
PT REFUSED TO TAKE PO XANAX. IV 0.25 OF ATIVAN ADMINISTERED AT THIS TIME. CALL LIGHT WITHIN REACH, WILL MONITOR
--- NOTE | 2020-09-28 01:30 | NUR ---
PRN ZOFRAN APPEARS EFFECTIVE, PT SLEEPING
[2020-09-28 02:00] VITALS: BP 142/65
--- NOTE | 2020-09-28 02:00 | NUR ---
PATIENT RESTING IN BED NOW. NO DISTRESS NOTED. VITALS ARE STABLE. PATIENT IN NO DISTRESS. 2L NC INTACT. BED ALARM INTACT. CALL LIGHT WITHIN REACH, WILL MONITOR
--- NOTE | 2020-09-28 07:22 | NUR ---
Faxed clinical updates to Lina at [facility] including the HPOA paperwork and the order showing the 1:1 was discontinued; Covid was negative, results faxed.
[2020-09-28 07:23] LABS: BASO % 0.3 % (0.0-1.0); EOS # 0.1 10*3/uL (0.0-0.4); EOS % 1.1 % (1.0-4.0); HEMATOCRIT 46.1 % (37.0-47.0); LYMPH # 2.8 10*3/uL (1.3-4.4); LYMPH % 31.2 % (27.0-41.0); MEAN CELL VOLUME 88.5 fl (81.0-99.0); MEAN CORPUSCULAR HGB 26.7 pg (27.0-31.0); MEAN CORPUSCULAR HGB CONC 30.2 g/dl (33.0-37.0); MEAN PLATELET VOLUME 10.2 fl (9.6-12.3); MONO # 0.7 10*3/uL (0.1-1.0); MONO % 8.3 % (3.0-9.0); NEUT # 5.2 10*3/uL (2.3-7.9); NEUT % 58.9 % (47.0-73.0); PLATELET COUNT AUTOMATED 214 10*3/uL (130-400); RED BLOOD COUNT 5.21 10*6/uL (4.10-5.10); RED CELL DISTRI WIDTH 14.6 % (0-14.5); WHITE BLOOD COUNT 8.9 10*3/uL (4.8-10.8)
[2020-09-28 07:40] LABS: ALBUMIN 2.7 gm/dl (3.1-4.5); ALKALINE PHOSPHATASE 49 U/L (45-117); BUN 8 mg/dl (7-24); CHLORIDE 107 mmol/L (98-107); CREATININE 0.59 mg/dL (0.55-1.02); POTASSIUM 3.8 mmol/L (3.5-5.1); SGOT/AST 10 IU/L (3-35); SGPT/ALT 7 U/L (12-78); SODIUM 143 mmol/L (136-145); TOTAL PROTEIN 6.1 gm/dL (6.4-8.2)
[2020-09-28 08:00] VITALS: BP 134/72
--- NOTE | 2020-09-28 08:05 | NUR ---
24 HR chart check completed.
--- NOTE | 2020-09-28 08:45 | NUR ---
OT NOTE PATIENT IDENTIFIED BY NAME AND DATE OF . COMPLETED 15 MINUTES 0T THIS DATE. PATIENT IN BED UPON ARRIVAL. PATIENT HARD OF HEARING AND REQUIRED INCREASE TIME AND SIMPLE ONE STEP COMMANDS. PATIENT RELUCTANT TO COMPLETE SUPINE TO SIT EOB MIN A X 2. COMPLETED SIT TO STAND FROM BED CGA WITH CGA USE FWW TO AMBULATE SHORT DISTANCE TO RECLINER. PATIENT COMPLETED UB DRESSING MAX A TO DON GOWN SEATED EOB. PATIENT DEMONSTRATES POOR SAFETY AWARENESS. PATIENT SEATED IN RECLINER WITH CHAIR ALARM INTACT AND CALL LIGHT WITHIN REACH. CONTINUE TOWARDS PLAN OF CARE. AUSTEN DASH/Lukasz
--- NOTE | 2020-09-28 08:45 | NUR ---
PHYSICAL THERAPY Patient seen this am 1:1 for therapy visit and was resting supine in bed upon therapist arrival. Patient identified by name / and was joined by OT paraprofessional education assistant for observation only this session. Patient is very [place] and required multiple v/c's to complete all therapy task, while reporting no c/o's pain at this time. Patient transfers supine to sit EOB with MIN A x 2, tolerating a minute or so of static EOB sit to collect herself. Patient performed sit to stand transfer CGA x 1, use of wh walker standing support, then completed SPT to bedside Sindy chair, including 5-6 forward steps, wh walker, CGA. Patient demonstrated very cautious step sequence and remained semi reclined in Sindy chair, with tray table, call light, body alarm for safety as breakfast arrived. Will continue per POC as tolerated, total treatment time 14 minutes. King Em, [employer]
[2020-09-28 12:00] VITALS: BP 129/68
--- NOTE | 2020-09-28 14:20 | NUR ---
PHYSICAL THERAPY CO-SIGN I approve of the Physical Therapy notes written above. Tonia Thurston PT
--- NOTE | 2020-09-28 14:32 | NUR ---
OCCUPATIONAL THERAPY CO-SIGN I approve of the Occupational Therapy notes written above. GERRI LING OTR/Lukasz
[2020-09-28 16:00] VITALS: BP 121/70
--- NOTE | 2020-09-28 16:08 | NUR ---
MEDICATED WITH PRN XANEX FOR ANXIETY. WILL ASSESS EFFECTIVENESS.
--- NOTE | 2020-09-28 17:08 | NUR ---
PATIENT RESTING IN BED. VOICES NO CONCERS. PATIENT SEEMS TO BE MORE CALM AT THIS TIME. XANEX APPEARS EFFECTIVE.
[2020-09-28 20:00] VITALS: BP 155/45
--- NOTE | 2020-09-28 20:50 | NUR ---
PATIENT HAS REFUSED TO TAKE PO MEDICATIONS, PATIENT STARTED TO BECOME HOTSTILE AND AGGRESSIVE GRABBING AT NURSES HAND AND NOT LETTING GO OF MEDICATIONS/NURSES HAND. PATIENT REPOSITIONED UP IN BED AND BED ALARM INTACT. LEFT ROOM ONCE PATIENT CALMED DOWN. CALL LIGHT WITHIN REACH
--- NOTE | 2020-09-28 21:10 | NUR ---
PATIENT SET OFF BED ALARM. PATIENT WAS PLACED IN SHAHEEN-CHAIR AND BROUGHT OUT TO STATION. PATIENT REFUSED TO HAVE CHAIR TRAY PUT INTO PLACE. PATIENT IS MORE CALM WITHOUT TRAY, WILL ATTEMPT TO KEEP OFF AT THIS TIME. WILL CONTINUE TO MONITOR
--- NOTE | 2020-09-28 22:30 | NUR ---
ATTEMPTED TO GIVE PATIENT HER MEDICATIONS AGAIN. PATIENT REFUSED X3, STATES SHE WILL ONLY TAKE MEDICATION FROM HER CHILDREN. MEDICATIONS GIVEN TO NEXT NURSE TAKING OVER AT 2300 TO TRY LATER
[2020-09-29] VITALS: BP 170/74
--- NOTE | 2020-09-29 05:00 | NUR ---
PATIENT BEDSIDE BLOOD GLUCOSE 51. PATIENT GIVEN ORANGE JUICE AND REJI CRACKERS.WILL RECHECK OFF OF MORNING LABS.
--- NOTE | 2020-09-29 05:30 | NUR ---
BLOOD GLUCOSE RESULTS FROM AM LABS 46. AMP OF DEXTROSE GIVEN AT THIS TIME. WILL CHECK AGAIN IN 1 HOUR.
[2020-09-29 06:17] LABS: BUN 11 mg/dl (7-24); CHLORIDE 103 mmol/L (98-107); CREATININE 0.71 mg/dL (0.55-1.02); SODIUM 143 mmol/L (136-145)
[2020-09-29 06:21] LABS: POTASSIUM 3.3 mmol/L (3.5-5.1)
[2020-09-29 06:32] LABS: BASO % 0.2 % (0.0-1.0); EOS # 0.2 10*3/uL (0.0-0.4); EOS % 1.2 % (1.0-4.0); HEMATOCRIT 50.3 % (37.0-47.0); LYMPH # 4.6 10*3/uL (1.3-4.4); LYMPH % 33.3 % (27.0-41.0); MEAN CELL VOLUME 87.8 fl (81.0-99.0); MEAN CORPUSCULAR HGB 26.7 pg (27.0-31.0); MEAN CORPUSCULAR HGB CONC 30.4 g/dl (33.0-37.0); MEAN PLATELET VOLUME 10.7 fl (9.6-12.3); MONO # 1.2 10*3/uL (0.1-1.0); MONO % 8.6 % (3.0-9.0); NEUT # 7.8 10*3/uL (2.3-7.9); NEUT % 56.4 % (47.0-73.0); RED BLOOD COUNT 5.73 10*6/uL (4.10-5.10); RED CELL DISTRI WIDTH 14.9 % (0-14.5); WHITE BLOOD COUNT 13.9 10*3/uL (4.8-10.8)
[2020-09-29 06:35] LABS: PLATELET COUNT AUTOMATED 301 10*3/uL (130-400)
[2020-09-29 08:00] VITALS: BP 111/82
[2020-09-29 12:00] VITALS: BP 148/86
--- NOTE | 2020-09-29 12:00 | NUR ---
PT PLACED ON 2 L NC SPO2 ON RA RANGING 88-90% PT SIDE LYING ON LEFT SIDE. RN AWARE.
--- NOTE | 2020-09-29 13:08 | NUR ---
PATIENT OFF THE FLOOR FOR CT OF CHEST.
--- NOTE | 2020-09-29 13:11 | NUR ---
FAMILY UPDATED ON POC.
--- NOTE | 2020-09-29 13:25 | NUR ---
PATIENT BACK TO FLOOR.
[2020-09-29 16:00] VITALS: BP 150/67
--- NOTE | 2020-09-29 18:33 | NUR ---
PATIENT RESTING IN BED. VOICES NO CONCERS. MILK PROVIDED PER PATIENT REQUEST. DENIES NEED FOR ANYTHING. VSS. CALL LIGHT IN REACH.
[2020-09-29 20:00] VITALS: BP 133/56
--- NOTE | 2020-09-29 20:50 | NUR ---
PATIENT FINGERSTICK BGM IS 355, PATIENT REFUSED TO HAVE FIGER STUCK AGAIN FOR X2 BGM. PATIENT ONLY GIVEN 6UNITS PER SSI PER NURSING JUDGEMENT, PATIENT GLUCOSE WAS 46 THIS MORNING. WILLL CONTINUE TO MONITOR
--- NOTE | 2020-09-29 21:00 | NUR ---
PATIENT BROUGHT OUT TO NURSES STATION PER PATIENT REQUEST. PATIENT PLACED IN SHAHEEN-CHAIR AND CHAIR ALARM IN PLACE. PATIENT VOICED NO COMPLAINT. NO OVERT DISTRESS, SPO2 WNL ON ROOM AIR. WILL CONTINUE TO MONITOR
[2020-09-30] VITALS: BP 146/69
[2020-09-30 05:58] LABS: BUN 14 mg/dl (7-24); CHLORIDE 103 mmol/L (98-107); CREATININE 0.68 mg/dL (0.55-1.02); POTASSIUM 3.8 mmol/L (3.5-5.1); SODIUM 142 mmol/L (136-145)
[2020-09-30 06:10] LABS: BASO % 0.2 % (0.0-1.0); EOS % 0.3 % (1.0-4.0); HEMATOCRIT 45.5 % (37.0-47.0); LYMPH # 2.3 10*3/uL (1.3-4.4); LYMPH % 19.6 % (27.0-41.0); MEAN CELL VOLUME 86.7 fl (81.0-99.0); MEAN CORPUSCULAR HGB 26.9 pg (27.0-31.0); MEAN PLATELET VOLUME 10.6 fl (9.6-12.3); MONO # 0.9 10*3/uL (0.1-1.0); MONO % 7.6 % (3.0-9.0); NEUT # 8.3 10*3/uL (2.3-7.9); NEUT % 72.1 % (47.0-73.0); PLATELET COUNT AUTOMATED 221 10*3/uL (130-400); RED BLOOD COUNT 5.25 10*6/uL (4.10-5.10); WHITE BLOOD COUNT 11.5 10*3/uL (4.8-10.8)
--- NOTE | 2020-09-30 07:30 | NUR ---
PATIENT RESTING IN BED. PATIENT APPEARS MUCH BETTER TODAY. PATIENT STATES SHE IS FEELING MUCH BETTER. ASSESSMENT COMPLETE. RESPS EASY AND REGULAR. CALL LIGHT IN REACH.
[2020-09-30 08:00] VITALS: BP 136/66
[2020-09-30] MEDS ORDERED: DOXYCYCLINE100 M3 PO (11:55)
[2020-09-30] MEDS ORDERED: MUCUS RELIEF600 MG PO (11:55)
[2020-09-30] MEDS ORDERED: LANTUS SOL100 UNIT/1 SC (11:55)
[2020-09-30] MEDS ORDERED: PREDNISONE10 MG PO (11:55)
[2020-09-30 12:00] VITALS: BP 129/65; BP 134/74
--- NOTE | 2020-09-30 13:14 | NUR ---
FAMILY UPDATED ON POC AND THAT PATIENT WILL BE DISCHARGED TO [facility] TODAY.
--- NOTE | 2020-09-30 14:35 | NUR ---
Discharge instructions reviewed with patient/family. Patient receptive and verbalizes understanding. Follow-up care arranged. Written instructions given to patient/family. PATIENT LEFT IN CARE OF AMBULANCE TO GO TO [facility]. REINA ORTIZ
--- NOTE | 2020-09-30 14:51 | NUR ---
NURSE TO NURSE REPORT GIVEN TO NURSE AT PSYCHIATRIC.
== END 2020-09-30 14:35 | disposition other institution (70) | DRG 177 ==
LOC: ED 22:18 → EDHOLD 09-25 01:06 → 4E 09-25 16:31
PROVIDERS: Emergency Medicine; Internal Medicine; Internal Medicine Critical Care Medicine; Student in an Organized Health Care Education/Training Program; ADMIT Student in an Organized Health Care Education/Training Program; ATTEND Student in an Organized Health Care Education/Training Program
DX: J69.0 Pneumonitis due to inhalation of food and vomit (principal); J96.00 Acute respiratory failure, unspecified whether with hypoxia or hypercapnia; E44.0 Moderate protein-calorie malnutrition; E87.2 Acidosis; G45.9 Transient cerebral ischemic attack, unspecified; J44.1 Chronic obstructive pulmonary disease with (acute) exacerbation; R65.10 Systemic inflammatory response syndrome (SIRS) of non-infectious origin without acute organ dysfunction; J45.909 Unspecified asthma, uncomplicated; K21.9 Gastro-esophageal reflux disease without esophagitis; E11.65 Type 2 diabetes mellitus with hyperglycemia; M19.90 Unspecified osteoarthritis, unspecified site; R41.9 Unspecified symptoms and signs involving cognitive functions and awareness; F03.90 Unspecified dementia, unspecified severity, without behavioral disturbance, psychotic disturbance, mood disturbance, and anxiety; I50.9 Heart failure, unspecified; F41.9 Anxiety disorder, unspecified; E11.649 Type 2 diabetes mellitus with hypoglycemia without coma; Z20.828 Contact with and (suspected) exposure to other viral communicable diseases; Z88.5 Allergy status to narcotic agent; Z88.6 Allergy status to analgesic agent; Z88.4 Allergy status to anesthetic agent; Z91.041 Radiographic dye allergy status; Z88.8 Allergy status to other drugs, medicaments and biological substances; Z79.899 Other long term (current) drug therapy

== ENCOUNTER 2020-10-18 20:41 | Inpatient (IN) | payer MEDICARE ==
[~2020-10-18] VITALS: Ht 157.5 cm; Wt 72.3 kg
[~2020-10-18 20:41] MED LIST changes: +ALPRAZOLAM0.25 M2 PO; +COMBIVENT RESPIM4 GM INH; +DIAZEPAM2 MG PO; +DIVALPROEX SOD250 MG PO; +DOXYCYCLINE100 M3 PO; +Ipratropium Brom3 ML INH; +MUCUS RELIEF600 MG PO; +PROAIR HFA8.5 GM INH
[2020-10-18 20:42] VITALS: BP 168/82
[2020-10-18 21:16] LABS: BASO % 0.4 % (0.0-1.0); EOS # 0.1 10*3/uL (0.0-0.4); EOS % 1.5 % (1.0-4.0); LYMPH # 1.3 10*3/uL (1.3-4.4); LYMPH % 17.3 % (27.0-41.0); MEAN CORPUSCULAR HGB 27.1 pg (27.0-31.0); MEAN CORPUSCULAR HGB CONC 30.4 g/dl (33.0-37.0); MEAN PLATELET VOLUME 10.4 fl (9.6-12.3); MONO # 0.5 10*3/uL (0.1-1.0); MONO % 6.5 % (3.0-9.0); NEUT # 5.4 10*3/uL (2.3-7.9); NEUT % 74.2 % (47.0-73.0); PLATELET COUNT AUTOMATED 156 10*3/uL (130-400); RED BLOOD COUNT 5.17 10*6/uL (4.10-5.10); WHITE BLOOD COUNT 7.3 10*3/uL (4.8-10.8)
[2020-10-18 21:27] LABS: ACT PARTIAL THROMBO TIME 25.6 SECONDS (20.0-32.1)
[2020-10-18 21:47] LABS: ALBUMIN 3.2 gm/dl (3.1-4.5); ALKALINE PHOSPHATASE 60 U/L (45-117); BUN 12 mg/dl (7-24); CHLORIDE 97 mmol/L (98-107); CREATININE 0.76 mg/dL (0.55-1.02); POTASSIUM 3.9 mmol/L (3.5-5.1); SGOT/AST 10 IU/L (3-35); SGPT/ALT 12 U/L (12-78); SODIUM 137 mmol/L (136-145); TOTAL PROTEIN 7.2 gm/dL (6.4-8.2)
[2020-10-18 21:52] LABS: TROPONIN I < 0.015 ng/ml (<0.045)
[2020-10-18 23:00] LABS: BILIRUBIN Negative (Negative); BLOOD Trace-Intact (Negative); CLARITY Clear (Clear); COLOR Yellow (Yellow); GLUCOSE 3+ (Negative); KETONE 2+ (Negative); LEUKO ESTERASE Trace (Negative); NITRITE Negative (Negative); PH 7.5 (4.5-8.0); SPECIFIC GRAVITY 1.015 (1.001-1.030); UROBILINOGEN 0.2 E.U./dl (0.0-1.0)
[2020-10-18 23:12] LABS: EPITHELIAL CELLS 16-20
[2020-10-19] VITALS (7 sets, daily range): BP systolic 106–171; BP diastolic 42–83
[2020-10-19 01:32] LABS: LIPASE 56 U/L (73-393)
[2020-10-19] MEDS ORDERED: NITROFURANTOIN100 M9 PO (03:03)
[2020-10-19 15:10] LABS: ABG BASE EXCESS 5.1 mmol/L (-2.0-2.0); ARTERIAL BLOOD GAS PH 7.415 (7.35-7.45)
[2020-10-20] VITALS: BP 153/59
[2020-10-20 06:36] LABS: BASO % 0.3 % (0.0-1.0); EOS # 0.2 10*3/uL (0.0-0.4); EOS % 3.1 % (1.0-4.0); HEMATOCRIT 43.5 % (37.0-47.0); LYMPH # 1.7 10*3/uL (1.3-4.4); LYMPH % 24.3 % (27.0-41.0); MEAN CELL VOLUME 90.1 fl (81.0-99.0); MEAN CORPUSCULAR HGB 26.7 pg (27.0-31.0); MEAN CORPUSCULAR HGB CONC 29.7 g/dl (33.0-37.0); MEAN PLATELET VOLUME 10.3 fl (9.6-12.3); MONO # 0.7 10*3/uL (0.1-1.0); MONO % 10.1 % (3.0-9.0); NEUT # 4.4 10*3/uL (2.3-7.9); NEUT % 61.9 % (47.0-73.0); PLATELET COUNT AUTOMATED 192 10*3/uL (130-400); RED BLOOD COUNT 4.83 10*6/uL (4.10-5.10); RED CELL DISTRI WIDTH 14.2 % (0-14.5); WHITE BLOOD COUNT 7.1 10*3/uL (4.8-10.8)
[2020-10-20 06:45] LABS: BUN 12 mg/dl (7-24); CHLORIDE 104 mmol/L (98-107); CREATININE 0.72 mg/dL (0.55-1.02); POTASSIUM 3.6 mmol/L (3.5-5.1); SODIUM 142 mmol/L (136-145)
[2020-10-20 08:00] VITALS: BP 106/89
[2020-10-20 12:00] VITALS: BP 114/51
[2020-10-20 16:00] VITALS: BP 141/78
[2020-10-20 20:00] VITALS: BP 150/56
[2020-10-21] VITALS: BP 129/53
[2020-10-21 08:00] VITALS: BP 158/68
[2020-10-21 12:00] VITALS: BP 118/52
[2020-10-21 16:00] VITALS: BP 137/50
[2020-10-21 20:00] VITALS: BP 106/61
[2020-10-22] VITALS: BP 148/79
[2020-10-22 06:15] LABS: BASO % 0.3 % (0.0-1.0); EOS # 0.2 10*3/uL (0.0-0.4); EOS % 2.3 % (1.0-4.0); HEMATOCRIT 40.4 % (37.0-47.0); LYMPH # 1.8 10*3/uL (1.3-4.4); LYMPH % 22.9 % (27.0-41.0); MEAN CELL VOLUME 88.8 fl (81.0-99.0); MEAN CORPUSCULAR HGB 27.9 pg (27.0-31.0); MEAN CORPUSCULAR HGB CONC 31.4 g/dl (33.0-37.0); MEAN PLATELET VOLUME 9.7 fl (9.6-12.3); MONO # 0.8 10*3/uL (0.1-1.0); MONO % 10.8 % (3.0-9.0); NEUT # 4.9 10*3/uL (2.3-7.9); NEUT % 63.4 % (47.0-73.0); PLATELET COUNT AUTOMATED 221 10*3/uL (130-400); RED BLOOD COUNT 4.55 10*6/uL (4.10-5.10); RED CELL DISTRI WIDTH 13.8 % (0-14.5); WHITE BLOOD COUNT 7.7 10*3/uL (4.8-10.8)
[2020-10-22 06:39] LABS: BUN 8 mg/dl (7-24); CHLORIDE 105 mmol/L (98-107); POTASSIUM 3.7 mmol/L (3.5-5.1); SODIUM 140 mmol/L (136-145)
[2020-10-22 08:00] VITALS: BP 105/39
[2020-10-22 12:00] VITALS: BP 103/61
[2020-10-22 16:00] VITALS: BP 134/56
[2020-10-22 20:00] VITALS: BP 150/63
[2020-10-23] VITALS: BP 131/44
[2020-10-23 03:30] VITALS: BP 110/68
[2020-10-23 07:23] LABS: BUN 12 mg/dl (7-24); CHLORIDE 112 mmol/L (98-107); CREATININE 0.56 mg/dL (0.55-1.02); POTASSIUM 3.5 mmol/L (3.5-5.1); SODIUM 142 mmol/L (136-145)
[2020-10-23 08:00] VITALS: BP 123/95
[2020-10-23 12:00] VITALS: BP 176/62
[2020-10-23 16:00] VITALS: BP 154/54
[2020-10-23 20:00] VITALS: BP 145/56; BP 154/54
[2020-10-24] VITALS: BP 155/63
[2020-10-24 07:22] LABS: BUN 7 mg/dl (7-24); CHLORIDE 104 mmol/L (98-107); CREATININE 0.54 mg/dL (0.55-1.02); POTASSIUM 3.2 mmol/L (3.5-5.1); SODIUM 140 mmol/L (136-145)
[2020-10-24 12:00] VITALS: BP 139/51
[2020-10-24 16:00] VITALS: BP 108/62
[2020-10-24 20:00] VITALS: BP 139/74
[2020-10-24 23:41] VITALS: BP 139/65
[2020-10-25 08:00] VITALS: BP 131/72
[2020-10-25 09:44] LABS: BASO % 0.4 % (0.0-1.0); EOS # 0.3 10*3/uL (0.0-0.4); EOS % 5.1 % (1.0-4.0); HEMATOCRIT 39.1 % (37.0-47.0); LYMPH # 1.3 10*3/uL (1.3-4.4); LYMPH % 25.7 % (27.0-41.0); MEAN CELL VOLUME 87.9 fl (81.0-99.0); MEAN CORPUSCULAR HGB 27.4 pg (27.0-31.0); MEAN CORPUSCULAR HGB CONC 31.2 g/dl (33.0-37.0); MEAN PLATELET VOLUME 9.2 fl (9.6-12.3); MONO # 0.4 10*3/uL (0.1-1.0); MONO % 8.4 % (3.0-9.0); NEUT # 2.9 10*3/uL (2.3-7.9); NEUT % 60.2 % (47.0-73.0); PLATELET COUNT AUTOMATED 198 10*3/uL (130-400); RED BLOOD COUNT 4.45 10*6/uL (4.10-5.10); RED CELL DISTRI WIDTH 13.6 % (0-14.5); WHITE BLOOD COUNT 4.9 10*3/uL (4.8-10.8)
[2020-10-25 10:23] LABS: ALBUMIN 2.4 gm/dl (3.1-4.5); ALKALINE PHOSPHATASE 50 U/L (45-117); BUN 7 mg/dl (7-24); CHLORIDE 104 mmol/L (98-107); CREATININE 0.52 mg/dL (0.55-1.02); POTASSIUM 3.4 mmol/L (3.5-5.1); SGOT/AST 15 IU/L (3-35); SGPT/ALT 9 U/L (12-78); SODIUM 141 mmol/L (136-145)
[2020-10-25 12:00] VITALS: BP 156/88
[2020-10-25 16:00] VITALS: BP 108/74
[2020-10-25 20:00] VITALS: BP 146/63
[2020-10-26] VITALS: BP 141/90
[2020-10-26] MEDS ORDERED: CEFUROXIME AXE250 MG PO (07:37)
[2020-10-26] MEDS ORDERED: PREDNISONE5 MG PO (07:37)
[2020-10-26 08:00] VITALS: BP 150/60
[2020-10-26 12:00] VITALS: BP 156/64
== END 2020-10-26 14:26 | disposition home health service (06) | DRG 177 ==
LOC: ED 20:41 → 5E 10-19 02:05 → EDHOLD 10-19 02:05 → 5E 10-19 02:12
PROVIDERS: Emergency Medicine; Internal Medicine; Internal Medicine Critical Care Medicine; ADMIT Internal Medicine; ATTEND Internal Medicine
DX: J69.0 Pneumonitis due to inhalation of food and vomit (principal); G93.41 Metabolic encephalopathy; N39.0 Urinary tract infection, site not specified; J96.11 Chronic respiratory failure with hypoxia; J44.1 Chronic obstructive pulmonary disease with (acute) exacerbation; J44.0 Chronic obstructive pulmonary disease with (acute) lower respiratory infection; E46 Unspecified protein-calorie malnutrition; J96.12 Chronic respiratory failure with hypercapnia; R41.0 Disorientation, unspecified; E11.8 Type 2 diabetes mellitus with unspecified complications; R33.9 Retention of urine, unspecified; K59.00 Constipation, unspecified; G30.1 Alzheimer's disease with late onset; F02.80 Dementia in other diseases classified elsewhere, unspecified severity, without behavioral disturbance, psychotic disturbance, mood disturbance, and anxiety; R62.7 Adult failure to thrive; E87.6 Hypokalemia; K59.09 Other constipation; M19.90 Unspecified osteoarthritis, unspecified site; B96.20 Unspecified Escherichia coli [E. coli] as the cause of diseases classified elsewhere; K21.9 Gastro-esophageal reflux disease without esophagitis; Z86.73 Personal history of transient ischemic attack (TIA), and cerebral infarction without residual deficits; Z82.49 Family history of ischemic heart disease and other diseases of the circulatory system; Z98.51 Tubal ligation status; Z83.3 Family history of diabetes mellitus; Z91.041 Radiographic dye allergy status; Z88.5 Allergy status to narcotic agent; Z88.6 Allergy status to analgesic agent; Z88.8 Allergy status to other drugs, medicaments and biological substances; Z68.29 Body mass index [BMI] 29.0-29.9, adult